=== PATIENT | male | born 1995 | race Caucasian/White ===

== ENCOUNTER 2024-01-08 20:42 | Emergency (ER) | payer MEDICAID, OTHER ==
[~2024-01-08] VITALS: Ht 180.3 cm; Wt 70.3 kg
[2024-01-08 21:09] VITALS: TEMP 97.9
[2024-01-08] MEDS ORDERED: FLUORESCEIN SODIUM OPHTH 1 EA STRIP ONE (21:17)
[2024-01-08] MEDS ORDERED: TETRAcaine 5 ML BOTTLE ONE (21:17)
[2024-01-08] MEDS ORDERED: SILVER SULFADIAZINE CREAM 25 GM TUBE ONE (21:17)
[2024-01-08] MEDS ORDERED: KETOROLAC TROMETHAMINE INJ 30 MG/ML VIAL ONE (21:18)
[2024-01-08] MEDS: KETOROLAC TROMETHAMINE INJ 60 MG/2 ML VIAL IM ONE (21:29)
[2024-01-08] MEDS: FLUORESCEIN SODIUM OPHTH 1 EA STRIP OP ONE (21:29)
[2024-01-08] MEDS: SILVER SULFADIAZINE CREAM 25 GM TUBE TP ONE (21:29)
[2024-01-08] MEDS: TETRACAINE HCL 0.5% OPHTALMIC 15 ML BOTTLE OP ONE (21:29)
[2024-01-08] MEDS ORDERED: ERYT3.5O9 EACHEYE (23:37)
[2024-01-08] MEDS ORDERED: SILV20CR13 TP (23:37)
[2024-01-09 00:55] VITALS: BP 131/76; O2SAT 98
== END 2024-01-09 00:55 | disposition home or self-care (01) ==
LOC: ER 20:48
DX: T23.172A Burn of first degree of left wrist, initial encounter (principal); H10.213 Acute toxic conjunctivitis, bilateral; X08.8XXA Exposure to other specified smoke, fire and flames, initial encounter; Y93.89 Activity, other specified; Y92.89 Other specified places as the place of occurrence of the external cause; Y99.8 Other external cause status
CPT/HCPCS: 99283; 16020; 96372; J1885